=== PATIENT | male | born 1985 | race African-American/Black ===

== ENCOUNTER 2019-03-26 22:17 | Emergency (ER) | payer SELFPAY ==
[~2019-03-26] VITALS: Ht 195.6 cm; Wt 117.3 kg
[2019-03-26] MEDS ORDERED: FLUORESCEIN SODIUM 1 MG STRIP OD ONE (22:45)
[2019-03-26] MEDS ORDERED: TETRACAINE HCL/PF 0.5% 4 ML OPHTHALMIC SOLUTION OD ONE (22:45)
[2019-03-26] MEDS ORDERED: GENTAMICIN SULFATE 0.3% OPHTHALMIC SOLUTION 5 ML OD ONE (23:15)
[2019-03-26 23:36] VITALS: BP 145/78
== END 2019-03-26 23:37 | disposition home or self-care (01) ==
LOC: EMS 22:18
DX: T15.01XA Foreign body in cornea, right eye, initial encounter (principal); X58.XXXA Exposure to other specified factors, initial encounter; Y93.89 Activity, other specified; Y92.89 Other specified places as the place of occurrence of the external cause; Y99.8 Other external cause status
CPT/HCPCS: 65222